=== PATIENT | female | born 1985 | race African-American/Black ===

== ENCOUNTER → 2018-02-02 | Outpatient (CLI) | payer OTHER ==
[~2018-02-02] MED LIST: NONE PER PATIENT
[2018-02-02 14:50] LABS: MICROSCOPIC AUTO
[2018-02-02 14:57] LABS: CULTURE INDICATED? NO
[2018-02-02 15:21] LABS: CALCIUM 8.4 mg/dL (8.5-10.1); CHLORIDE 106 mmol/L (98-107)
[2018-02-02 15:29] LABS: ALANINE AMINOTRANSFERASE 13 U/L (12-78); ALBUMIN 3.4 g/dL (3.4-5.0); ALKALINE PHOSPHATASE 61 U/L (45-117); ANION GAP 9 mmol/L (5-15); BILIRUBIN,TOTAL 0.5 mg/dL (0.2-1.0); CREATININE 0.82 mg/dL (0.55-1.02)
[2018-02-03 05:51] LABS: BASOPHILS # (AUTO) 0.03 x10^3/uL (0-0.1); BASOPHILS % (AUTO) 1 % (0-1); EOSINOPHILS # (AUTO) 0.08 x10^3/uL (0-0.4); EOSINOPHILS % (AUTO) 1 % (1-7); LYMPHOCYTES # (AUTO) 2.77 x10^3/uL (1-3.4); LYMPHOCYTES % (AUTO) 45 % (22-44); MD NO; MEAN CORPUSCULAR HEMOGLOBIN 31.1 pg (27.0-34.8); MEAN CORPUSCULAR HGB CONC 33.4 g/dL (32.4-35.8); MEAN CORPUSCULAR VOLUME 93.2 fL (80-100); MEAN PLATELET VOLUME 9.7 fL (7.4-10.4); MONOCYTES # (AUTO) 0.45 x10^3/uL (0.2-0.8); MONOCYTES % (AUTO) 7 % (2-9); NEUTROPHILS # (AUTO) 2.86 x10^3/uL (1.8-6.8); NEUTROPHILS % (AUTO) 46 % (42-75); PLATELET COUNT 271 x10^3/uL (130-400); RED CELL DISTRIBUTION WIDTH 14.2 % (9.6-15.2)
== END | disposition home or self-care (01) ==
LOC: STAR 13:55 → MERGE 14:00
PROVIDERS: ATTEND Obstetrics & Gynecology
DX: Z01.818 Encounter for other preprocedural examination (principal); R10.2 Pelvic and perineal pain
CPT/HCPCS: 36415; 80053; 81001; 84702; 85025

== ENCOUNTER 2018-02-13 13:00 | Day surgery (SDC) | payer OTHER ==
[~2018-02-13] VITALS: Ht 167.6 cm; Wt 104.0 kg
[2018-02-13] MEDS ORDERED: LACTATED RINGERS 1,000 ML IV SCH (13:28)
[2018-02-13 13:42] LABS: HCG UR SG 1.034 (1.003-1.030)
[2018-02-13] MEDS ORDERED: LORazepam 2 MG/ML, 1ML IVPush PRN (15:00)
[2018-02-13] MEDS ORDERED: MORPHINE SULFATE 4 MG/ML, 1ML IVPush PRN (15:00)
[2018-02-13] MEDS ORDERED: OXYcodone 5 MG/5 ML ORAL.SOL UDC PO PRN (15:00)
[2018-02-13] MEDS ORDERED: MEPERIDINE/PF 25MG/0.5ML IVPush PRN (15:00)
[2018-02-13] MEDS ORDERED: ACETAMINOPHEN 325 MG TABLET PO PRN (15:00)
[2018-02-13] MEDS ORDERED: DIAZEPAM 5 MG/ML, 2ML IVPush PRN (15:00)
[2018-02-13] MEDS ORDERED: FENTANYL PF 100 MCG/2ML IV PRN (15:00)
[2018-02-13] MEDS ORDERED: LABETALOL 5MG/ML, 20ML IV PRN (15:00)
[2018-02-13] MEDS ORDERED: METOPROLOL 1 MG/ML, 5ML IV PRN (15:00)
[2018-02-13] MEDS ORDERED: MIDAZOLAM 1 MG/ML, 2ML IV PRN (15:00)
[2018-02-13] MEDS ORDERED: PROCHLORPERAZINE 5 MG/ML, 2ML IV PRN (15:00)
[2018-02-13] MEDS ORDERED: HYDROmorphone 1 MG/ML, 1ML IV PRN (15:00)
[2018-02-13] MEDS ORDERED: ALBUTEROL SULFATE 2.5 MG/3 ML NPPB PRN (15:00)
[2018-02-13] MEDS ORDERED: EPHEDRINE 50 MG/ML, 1ML IVPush PRN (15:00)
[2018-02-13] MEDS ORDERED: hydrALAzine 20 MG/ML, 1ML IV PRN (15:00)
[2018-02-13] MEDS ORDERED: BUPIVACAINE 0.25% ONE (15:10)
[2018-02-13] MEDS ORDERED: MIDAZOLAM 1 MG/ML, 5ML ONE (15:35)
[2018-02-13] MEDS ORDERED: PROPOFOL 10 MG/ML, 20ML ONE (15:35)
[2018-02-13] MEDS ORDERED: LIDOCAINE 2% 100MG/5ML SYRINGE ONE (15:35)
[2018-02-13] MEDS ORDERED: DEXAMETHASONE 4 MG/ML, 1ML ONE (15:35)
[2018-02-13] MEDS ORDERED: SUCCINYLCHOLINE 20 MG/ML, 10ML ONE (15:35)
[2018-02-13] MEDS ORDERED: FENTANYL PF 100 MCG/2ML ONE (15:35)
[2018-02-13] MEDS ORDERED: ONDANSETRON 2MG/ML, 2ML ONE (15:35)
[2018-02-13] MEDS ORDERED: CEFAZOLIN 1,000 MG ONE (15:35)
[2018-02-13] MEDS ORDERED: ACETAMINOPHEN 325 MG TABLET ONE (17:29)
[2018-02-13] MEDS ORDERED: OXYcodone 5 MG/5 ML ORAL.SOL UDC ONE (17:29)
[2018-02-13] MEDS ORDERED: PROCHLORPERAZINE 5 MG/ML, 2ML ONE (17:33)
[2018-02-13] MEDS ORDERED: IBUPROFEN 600 MG TABLET PO PRN (19:00)
[2018-02-13] MEDS ORDERED: HYDROcodone/APAP 5/325 TABLET PO PRN (19:00)
[2018-02-13] MEDS ORDERED: ONDANSETRON 2MG/ML, 2ML IV PRN (19:00)
== END 2018-02-13 22:20 | disposition home or self-care (01) ==
LOC: OR 13:00 → 4NOR 18:09 → OR 22:20
PROVIDERS: ATTEND Obstetrics & Gynecology
DX: N80.0 Endometriosis of uterus (principal); N73.6 Female pelvic peritoneal adhesions (postinfective)
CPT/HCPCS: 36415; 58662; 81025; 86850; 86900; J0330; J0690; J0780; J1100; J2250; J2405; J2704; J3010; J3490; J7120; G0378